=== PATIENT | female | born 1965 | race Caucasian/White ===

== ENCOUNTER → 2020-11-15 | Outpatient (CLI) | payer OTHER ==
[~2020-11-15] MED LIST: METO25ER PO; XARELTO20 MG PO
[2020-11-21 09:10] LABS: HPV 16 Negative (Negative); HPV 18 Negative (Negative); HPV OTHER HR TYPES Negative (Negative)
== END | disposition home or self-care (01) ==
LOC: LAB 19:18 → LAB SHORT 19:18
PROVIDERS: Internal Medicine
DX: Z01.419 Encounter for gynecological examination (general) (routine) without abnormal findings (principal)
CPT/HCPCS: 87624; G0145

== ENCOUNTER 2020-12-05 13:14 | Day surgery (SDC) | payer OTHER ==
[~2020-12-05] VITALS: Ht 154.9 cm; Wt 114.0 kg
[2020-12-05] MEDS ORDERED: XARELTO20 MG PO (13:44)
[2020-12-05] MEDS ORDERED: METO25ER PO (13:44)
--- NOTE | 2020-12-05 15:16 | NUR ---
12/05/[address] INJECTED LIDOCAINE AT BEDSIDE AT 1500. PT TOLERATED WELL.
== END 2020-12-05 16:03 | disposition home or self-care (01) ==
LOC: ORSCSDS 13:14
PROVIDERS: Orthopaedic Surgery
PROC: 01N54ZZ Release Median Nerve, Percutaneous Endoscopic Approach (ICD-10-PCS; principal; 2020-12-05 14:30)
DX: G56.02 Carpal tunnel syndrome, left upper limb (principal); E66.01 Morbid (severe) obesity due to excess calories; Z68.42 Body mass index [BMI] 45.0-49.9, adult; Z79.01 Long term (current) use of anticoagulants; Z79.899 Other long term (current) drug therapy
CPT/HCPCS: J2250

== ENCOUNTER 2021-01-11 09:43 | Day surgery (SDC) | payer OTHER ==
[~2021-01-11] VITALS: Ht 154.9 cm; Wt 112.4 kg
--- NOTE | 2021-01-11 14:34 | NUR ---
01/11/21 1434 Madeleine Aly LATE ENTRY----DR MEDINA CANCELLED THIS CASE. PATIENT WAS IN AFIB WITH RVR AND HER HEART RATE WAS IN THE 130'S WHEN HE CHECKED HER. SHE HAD NOT TAKEN HER BETA CARLOS FOR 2 DAYS (PATIENT STATED SHE JUST DECIDED NOT TO TAKE THEM SINCE SHE WAS HOLDING HER XARELTO). DR MEDINA DISCUSSED THE CASE WITH DR LONGORIA AND IT WAS FOR A SCREENING COLONOSCOPY AND NOT URGENT THE CASE WAS CANCELLED. PATIENT EXPRESSED UNDERSTANDING OF THE SITUATION.
== END 2021-01-11 10:40 | disposition home or self-care (01) ==
LOC: ORSCSDS 09:43
DX: Z12.11 Encounter for screening for malignant neoplasm of colon (principal); Z53.9 Procedure and treatment not carried out, unspecified reason
CPT/HCPCS: J7120

== ENCOUNTER 2022-11-05 09:12 | Day surgery (SDC) | payer OTHER ==
[~2022-11-05] VITALS: Ht 152.4 cm; Wt 130.7 kg
[2022-11-05] MEDS ORDERED: LEVSOD100 (09:34)
--- NOTE | 2022-11-05 10:39 | NUR ---
11/05/22 1039 Thelma Samaniego VERSED 2ML PER DR. KATZ GIVEN AT 1035; 02 AT 94%, PLUSE AT 107
--- NOTE | 2022-11-05 11:15 | NUR ---
11/05/22 1115 CHANDAN DICK PT O2 SAT S 97% AT RA IN STEP DWN
== END 2022-11-05 11:36 | disposition home or self-care (01) ==
LOC: ORSCSDS 09:12
PROVIDERS: Orthopaedic Surgery
PROC: 01N54ZZ Release Median Nerve, Percutaneous Endoscopic Approach (ICD-10-PCS; principal; 2022-11-05 10:30)
DX: G56.01 Carpal tunnel syndrome, right upper limb (principal); I48.91 Unspecified atrial fibrillation; I10 Essential (primary) hypertension; G47.33 Obstructive sleep apnea (adult) (pediatric); E66.01 Morbid (severe) obesity due to excess calories; Z68.43 Body mass index [BMI] 50.0-59.9, adult; F17.210 Nicotine dependence, cigarettes, uncomplicated; Z79.01 Long term (current) use of anticoagulants; Z79.899 Other long term (current) drug therapy
CPT/HCPCS: J2250; J7120

== ENCOUNTER 2023-01-23 09:05 | Day surgery (SDC) | payer OTHER ==
[~2023-01-23 09:05] MED LIST changes: +LEVSOD100; +TRAM50
--- NOTE | 2023-01-23 11:04 | NUR ---
SUCCESSFUL CARDIOVERSION. PATIENT IN NSR. EKG PERFORMED. VSS ON ROOM AIR. PATIENT DISCHARGE INSTRUCTIONS REVIEWED WITH PATIENT AND AT BEDSIDE. FOLLOW UP APPOINTMENT SCHEDULED. PATIENT SITTING UPRIGHT IN BED. VSS ON ROOM AIR. PIV REMOVED WITHOUT DIFFICULTY, CATHETER INTACT. PATIENT DISCHARGED HOME WITH .
--- NOTE | 2023-01-23 11:14 | NUR ---
LE 0900-PT PREPPED PER PROTOCOL FOR CARDIOVERSION FOR AF, DR KATZ PRESENT FOR ANESTHESIA, DR BRONSON FOR CARDIOVERSION, IV 22G PLACED BY RODOLFO Pruitt RN IN R AC, CARDIOVERSION AT 200J X 1 - SUCCESSFUL. AFTER PROCEDURE, DC'D BY WC, DRIVING PT HOME
== END 2023-01-24 22:51 | disposition home or self-care (01) ==
LOC: MHTC 09:05
DX: I48.91 Unspecified atrial fibrillation (principal); E66.01 Morbid (severe) obesity due to excess calories; E07.9 Disorder of thyroid, unspecified; Z79.01 Long term (current) use of anticoagulants; Z68.43 Body mass index [BMI] 50.0-59.9, adult
CPT/HCPCS: 92960; 93005; 93010; J2704; J7120

== ENCOUNTER 2023-10-21 07:11 | Day surgery (SDC) | payer OTHER ==
[~2023-10-21] VITALS: Ht 152.4 cm; Wt 137.0 kg
[2023-10-21] VITALS (13 sets, daily range): BP systolic 110–143; BP diastolic 83–120
--- NOTE | 2023-10-21 08:00 | NUR ---
PROCEDURE HAS STARTED, SEE SEDATION RECORD FOR MEDS GIVEN AND SHOCKS DELIVERED.
--- NOTE | 2023-10-21 08:19 | NUR ---
PT SLEEPING, ROUSES EASILY TO VERBAL STIMULI. VSS, CALL LIGHT IN REACH.
--- NOTE | 2023-10-21 08:48 | NUR ---
POST PROCEDURE EKG HAS BEEN COMPLETED, RESULTS TO DR CASTANEDA.
--- NOTE | 2023-10-21 09:01 | NUR ---
DR CASTANEDA AT BEDSIDE SPEAKING WITH PT ABOUT PROCEDURE RESULTS AND PLAN FOR CARE. PT AWAKE, DOZES AT TIMES. CURRENTLY DENIES ANY PAIN OR DISCOMFORT. VSS, SINUS RHYTHM ON THE MONITOR.
--- NOTE | 2023-10-21 09:40 | NUR ---
IV DC'D, CATH INTACT. PT GIVEN DISCHARGE INSTRUCTIONS AND FOLLOW UP INFO, VERBALIZED UNDERSTANDING. PT OUT TO CAR VIA WHEELCHAIR, ACCOMPANIED BY SPOUSE.
== END 2023-10-21 09:30 | disposition home or self-care (01) ==
LOC: MHTC 07:11
DX: I48.0 Paroxysmal atrial fibrillation (principal); R53.83 Other fatigue
CPT/HCPCS: 93005; 93010; J2250; J3010; J7030